=== PATIENT | male | born 1960 | race African-American/Black ===

== ENCOUNTER 2019-01-05 19:50 | Emergency (ER) | payer OTHER ==
[2019-01-05 19:59] VITALS: BP 137/85
[2019-01-05] MEDS ORDERED: HYDROCODONE/ACETAMINOPHEN 5-325 MG TABLET PO ONE (20:09)
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
== END 2019-01-05 21:18 | disposition home or self-care (01) ==
LOC: ER 19:50
DX: S92.425A Nondisplaced fracture of distal phalanx of left great toe, initial encounter for closed fracture (principal); S93.402A Sprain of unspecified ligament of left ankle, initial encounter; W22.09XA Striking against other stationary object, initial encounter; F17.200 Nicotine dependence, unspecified, uncomplicated
CPT/HCPCS: 99283